=== PATIENT | male | born 1940 | race Caucasian/White ===

== ENCOUNTER → 2020-08-26 | Day surgery (SDC) | payer MEDICARE, OTHER ==
[~2020-08-26] MED LIST: FERROUS GLUCON324 M1 PO; PROPRANOLOL HCL20 MG PO; XARELTO20 MG PO
== END | disposition home or self-care (01) ==
LOC: OR 06:24
DX: D64.9 Anemia, unspecified (principal); K57.30 Diverticulosis of large intestine without perforation or abscess without bleeding; K44.9 Diaphragmatic hernia without obstruction or gangrene; K63.5 Polyp of colon; I12.9 Hypertensive chronic kidney disease with stage 1 through stage 4 chronic kidney disease, or unspecified chronic kidney disease; N18.2 Chronic kidney disease, stage 2 (mild); D50.9 Iron deficiency anemia, unspecified; E55.9 Vitamin D deficiency, unspecified; D51.0 Vitamin B12 deficiency anemia due to intrinsic factor deficiency; G89.29 Other chronic pain; K21.9 Gastro-esophageal reflux disease without esophagitis; M19.90 Unspecified osteoarthritis, unspecified site; E87.5 Hyperkalemia; N40.0 Benign prostatic hyperplasia without lower urinary tract symptoms; Z80.9 Family history of malignant neoplasm, unspecified; Z91.040 Latex allergy status
CPT/HCPCS: J2704; J7120